=== PATIENT | male | born 1945 | race Caucasian/White ===

== ENCOUNTER 2017-12-08 05:25 | Inpatient (IN) | payer MEDICARE, OTHER ==
[2017-12-08] MEDS ORDERED: HEPARIN 1000 UNITS/ML 10 ML INJ (06:57)
[2017-12-08] MEDS ORDERED: GELATIN SIZE 100 SPONGE ×2 (06:57→08:13)
[2017-12-08] MEDS ORDERED: LIDOCAINE 2% (SDV) 5 ML INJ (07:00)
[2017-12-08] MEDS ORDERED: LACTATED RINGER'S 1,000 ML IV* (07:00)
[2017-12-08] MEDS ORDERED: ONDANSETRON 4 MG INJ (07:00)
[2017-12-08] MEDS: CEFAZOLIN 2 GM/50 ML (PMX) 50 ML IVPB (07:00)
[2017-12-08] MEDS ORDERED: FENTAnyl 50 MCG/ML VIAL (07:08)
[2017-12-08] MEDS ORDERED: MIDAZOLAM 1 MG/ML 2 ML INJ (07:12)
[2017-12-08] MEDS ORDERED: morphine 10 MG INJ (07:23)
[2017-12-08] MEDS ORDERED: CEPASTAT LOZENGE MT (07:30)
[2017-12-08] MEDS ORDERED: ACETAMINOPHEN 325 MG TAB PO (07:30)
[2017-12-08] MEDS ORDERED: NALOXONE (0.4 MG/ML) INJ IV (07:30)
[2017-12-08] MEDS ORDERED: BISACODYL 10 MG SUPP PR (07:30)
[2017-12-08] MEDS ORDERED: DIPHENHYDRAMINE 50 MG INJ IV ×2 (07:30→12:00)
[2017-12-08] MEDS ORDERED: ONDANSETRON 4 MG INJ IV ×2 (07:30→12:00)
[2017-12-08] MEDS: CEFAZOLIN 1 GM/50 ML (PMX) 50 ML IVPB ×3 (07:30→23:36)
[2017-12-08] MEDS ORDERED: AL HYDROX/MG HYDROX/SIMETH 30 ML CUP PO (07:30)
[2017-12-08] MEDS ORDERED: HYDROmorphONE 0.5 MG/0.5 ML SYG IV (07:30)
[2017-12-08] MEDS ORDERED: LABETALOL HCL 20MG INJ (08:00)
[2017-12-08] MEDS: THROMBIN 5000 UNIT VIAL TOP (08:15)
[2017-12-08] MEDS: GELATIN SIZE 100 SPONGE TOP (08:16)
[2017-12-08] MEDS: SURGIFOAM POWDER 1 GM KIT (08:26)
[2017-12-08] MEDS: LIDOCAINE 1%/EPI 30 ML INJ (08:27)
[2017-12-08] MEDS: POLYMYXIN/BACITRACIN 1L IRRIG (08:27)
[2017-12-08] MEDS: THROMBIN 5000 UNIT VIAL (08:28)
[2017-12-08] MEDS ORDERED: DEXAMETHASONE 4 MG/ML 1 ML INJ (08:55)
[2017-12-08] MEDS ORDERED: ROCURONIUM 50 MG INJ ×3 (11:35→11:44)
[2017-12-08] MEDS ORDERED: PROPOFOL 20 ML (11:35)
[2017-12-08] MEDS ORDERED: SUGAMMADEX SODIUM 200 MG/2 ML VIAL IV (11:37)
[2017-12-08] MEDS ORDERED: CEFAZOLIN 1 GM INJ (11:43)
[2017-12-08] MEDS ORDERED: METOCLOPRAMIDE 10 MG INJ IV (12:00)
[2017-12-08] MEDS ORDERED: OXYCODONE/ACETAMINOPHEN (5/325) TAB PO ×2 (12:00)
[2017-12-08] MEDS ORDERED: FENTAnyl 50 MCG/ML VIAL IV ×3 (12:00)
[2017-12-08] MEDS ORDERED: LABETALOL HCL 20MG INJ IV (12:00)
[2017-12-08] MEDS ORDERED: hydrALAzine 20 MG INJ IV (12:00)
[2017-12-08] MEDS ORDERED: ALBUTEROL 0.083% (NEB) 2.5 MG/3 ML AMP HHN (12:00)
[2017-12-08] MEDS ORDERED: EPHEDrine SULFATE 50 MG/5 ML SYG IV (12:00)
[2017-12-08] MEDS ORDERED: KETOROLAC 30 MG INJ IV (12:00)
[2017-12-08] MEDS ORDERED: HYDROmorphONE (0.2 MG/ML) 10ML SYG IV ×3 (12:00)
[2017-12-08] MEDS ORDERED: MEPERIDINE 25 MG INJ IV (12:00)
[2017-12-08] MEDS: HYDROmorphONE 0.2 MG/ML PCA IV (12:25)
[2017-12-08] MEDS: BENAZEPRIL 20 MG TAB PO (12:30)
[2017-12-08] MEDS: METOPROLOL 50 MG TAB PO ×2 (12:30→20:52)
[2017-12-08] MEDS: DOCUSATE SODIUM 100 MG CAP PO ×2 (12:37→20:51)
[2017-12-08] MEDS: PANTOPRAZOLE (EC) 40 MG TAB PO (13:43)
[2017-12-08] MEDS: D5W-0.45 NACL + KCL 20 MEQ 1,000 ML IV ×3 (13:43→23:41)
[2017-12-09 05:13] LABS: ADD MAN DIFF? NO
[2017-12-09 05:17] LABS: WHITE BLOOD COUNT 11.8 10^3/ul (4.8-10.8)
[2017-12-09 05:17] LABS: BASOPHILS % 0.2 % (0.0-2.0); HEMATOCRIT 37.9 % (42.0-52.0); HEMOGLOBIN 13.4 g/dl (14.0-18.0); LYMPHOCYTES # 1.2 10^3/ul (0.8-2.9); LYMPHOCYTES % 10.3 % (15.0-51.0); MEAN CORPUSCULAR HEMOGLOBIN 35.4 pg (29.0-33.0); MEAN CORPUSCULAR HGB CONC 35.4 g/dl (32.0-37.0); MEAN PLATELET VOLUME 10.3 fl (7.4-10.4); MONOCYTE # 0.9 10^3/ul (0.3-0.9); MONOCYTES % 7.9 % (0.0-11.0); NEUTROPHIL # 9.6 10^3/ul (1.6-7.5); PLATELET COUNT 177 10^3/UL (140-415); RED BLOOD COUNT 3.79 10^6/ul (4.70-6.10); RED CELL DISTRIBUTION WIDTH 12.3 % (11.5-14.5)
[2017-12-09 06:05] LABS: ANION GAP 15 (8-16); BLOOD UREA NITROGEN 15 mg/dl (7-20); CALCIUM 8.7 mg/dl (8.4-10.2); CARBON DIOXIDE 26 mmol/L (21-31); CHLORIDE 102 mmol/L (97-110); CREATININE 0.95 mg/dl (0.61-1.24); GLUCOSE 189 mg/dl (70-220); MAGNESIUM 1.5 mg/dl (1.7-2.5); POTASSIUM 4.8 mmol/L (3.5-5.1); SODIUM 138 mmol/L (135-144)
[2017-12-09] MEDS: BENAZEPRIL 20 MG TAB PO (08:22)
[2017-12-09] MEDS: DOCUSATE SODIUM 100 MG CAP PO ×2 (08:22→21:00)
[2017-12-09] MEDS: METOPROLOL 50 MG TAB PO ×2 (08:24→20:47)
[2017-12-09] MEDS ORDERED: HYDROCODONE/APAP (10/325) TAB PO (10:00)
[2017-12-09] MEDS: MAGNESIUM SULFATE 3 GM in DEXTROSE 5% 100 ML IVPB (10:04)
[2017-12-09] MEDS: HYDROCODONE/APAP (10/325) TAB PO ×4 (10:05→22:13)
[2017-12-09] MEDS: D5W-0.45 NACL + KCL 20 MEQ 1,000 ML IV ×2 (13:01→23:01)
[2017-12-10] MEDS: CYCLOBENZAPRINE 10 MG TAB PO (01:59)
[2017-12-10] MEDS: ZOLPIDEM 5 MG TAB PO (02:00)
[2017-12-10] MEDS: HYDROCODONE/APAP (10/325) TAB PO ×2 (05:13→09:14)
[2017-12-10 08:05] LABS: ADD MAN DIFF? NO
[2017-12-10 08:09] LABS: WHITE BLOOD COUNT 15.7 10^3/ul (4.8-10.8)
[2017-12-10 08:09] LABS: BASOPHIL # 0.1 10^3/ul (0.0-0.1); BASOPHILS % 0.4 % (0.0-2.0); EOSINOPHILS % 0.1 % (0.0-7.0); HEMATOCRIT 39.5 % (42.0-52.0); HEMOGLOBIN 13.4 g/dl (14.0-18.0); LYMPHOCYTES # 2.1 10^3/ul (0.8-2.9); LYMPHOCYTES % 13.3 % (15.0-51.0); MEAN CORPUSCULAR HEMOGLOBIN 34.7 pg (29.0-33.0); MEAN CORPUSCULAR HGB CONC 33.9 g/dl (32.0-37.0); MEAN CORPUSCULAR VOLUME 102.3 fl (82.0-101.0); MONOCYTE # 1.3 10^3/ul (0.3-0.9); MONOCYTES % 8.4 % (0.0-11.0); NEUTROPHIL # 12.1 10^3/ul (1.6-7.5); NEUTROPHILS % 77.4 % (39.0-77.0); PLATELET COUNT 171 10^3/UL (140-415); RED BLOOD COUNT 3.86 10^6/ul (4.70-6.10)
[2017-12-10 08:47] LABS: ANION GAP 15 (8-16); BLOOD UREA NITROGEN 16 mg/dl (7-20); CALCIUM 8.6 mg/dl (8.4-10.2); CARBON DIOXIDE 28 mmol/L (21-31); CHLORIDE 102 mmol/L (97-110); CREATININE 0.91 mg/dl (0.61-1.24); GLUCOSE 121 mg/dl (70-220); MAGNESIUM 1.8 mg/dl (1.7-2.5); POTASSIUM 4.1 mmol/L (3.5-5.1); SODIUM 141 mmol/L (135-144)
[2017-12-10] MEDS: D5W-0.45 NACL + KCL 20 MEQ 1,000 ML IV (09:01)
[2017-12-10] MEDS: BENAZEPRIL 20 MG TAB PO (09:14)
[2017-12-10] MEDS: DOCUSATE SODIUM 100 MG CAP PO (09:14)
[2017-12-10] MEDS: METOPROLOL 50 MG TAB PO (09:15)
[2017-12-10] MEDS: MAGNESIUM SULFATE 2 GM/50 ML 50 ML IVPB (09:49)
== END 2017-12-10 13:47 | disposition home or self-care (01) | DRG 473 ==
LOC: REC 05:25 → MS1 13:08
PROC: 0RG20A0 Fusion of 2 or more Cervical Vertebral Joints with Interbody Fusion Device, Anterior Approach, Anterior Column, Open Approach (ICD-10-PCS; principal; 2017-12-08 07:00)
PROC: 0RB30ZZ Excision of Cervical Vertebral Disc, Open Approach (ICD-10-PCS; 2017-12-08 07:00)
PROC: 00NW0ZZ Release Cervical Spinal Cord, Open Approach (ICD-10-PCS; 2017-12-08 07:00)
PROC: 4A11X4G Monitoring of Peripheral Nervous Electrical Activity, Intraoperative, External Approach (ICD-10-PCS; 2017-12-08 07:00)
DX: M48.02 Spinal stenosis, cervical region (principal); M50.123 Cervical disc disorder at C6-C7 level with radiculopathy; I10 Essential (primary) hypertension; I25.10 Atherosclerotic heart disease of native coronary artery without angina pectoris; M25.78 Osteophyte, vertebrae; Z95.1 Presence of aortocoronary bypass graft; Z87.11 Personal history of peptic ulcer disease
CPT/HCPCS: 72052; 80048; 83735; 84100; 85025; 86999; 87086; 88304; 97116; 97162; 97530